=== PATIENT | female | born 1950 | race Caucasian/White ===

== ENCOUNTER → 2020-11-08 | Outpatient (CLI) | payer OTHER ==
[~2020-11-08] MED LIST: LISI20TA24 PO; SIMV-43 PO
== END | disposition home or self-care (01) ==
LOC: RAH 10:54
PROVIDERS: ATTEND Internal Medicine Cardiovascular Disease
DX: Z13.6 Encounter for screening for cardiovascular disorders (principal)
CPT/HCPCS: 75571

== ENCOUNTER → 2021-01-10 | Outpatient (CLI) | payer MEDICARE ==
[~2021-01-10] MED LIST changes: +AEC81 PO; +ATOR40TA71 PO; +GABA300C PO; +LISI10TA24 PO; -LISI20TA24 PO; +METF-890 PO; +NITR.4 SL; -SIMV-43 PO; +VALA500T42 PO
== END | disposition home or self-care (01) ==
LOC: CANPRESDC → DAH 10:00 → EDSTATUS 01-13 12:00
PROVIDERS: ATTEND Internal Medicine Gastroenterology
DX: U07.1 COVID-19 (principal); K63.5 Polyp of colon
CPT/HCPCS: C9803; U0003